=== PATIENT | female | born 1955 | race Caucasian/White ===

== ENCOUNTER 2017-02-02 17:50 | Inpatient (IN) | payer BC ==
[~2017-02-02] VITALS: Ht 165.1 cm; Wt 143.6 kg
[~2017-02-02 17:50] MED LIST: ADULT LOW DOSE81 M1 PO; ALLOPURINOL100 MG PO; ANCEF,KEFZOL1 GM IV; ARTIFICIAL TEAR15 M6 BOTH EYES; BACTRIM,SEPT1 TABLET PO; CILOSTAZOL100 MG PO; CINNAMON500 MG PO; CIPRO750 MG PO; CLEOCIN300 MG PO; CO Q-10100 MG PO; COLCHICINE0.6 M1 PO; COLCRYS0.6 MG PO; COZAAR50 MG PO; DAILY VITAMIN1 EAC8 PO; FLORASTOR250 MG PO; FUROSEMIDE40 MG PO; HEPARIN LOCK 1005 ML IV; JANUMET 50/11 TABLET PO; KEFLEX500 MG PO; LASIX20 MG PO; LEVEMIR FL100 UNIT/1 SC; LEVEMIR FL100 UNITS/ SC; LEVOTHYROXINE200 MC1 PO; LISINOPRIL30 MG PO; LOPRESSOR100 M1 PO; LOW DOSE ASPIRI81 M1 PO; MAGNESIUM OXID500 MG PO; METOPROLOL TAR100 MG PO; MG-PLUS-PROTEI133 MG PO; MOTRIN IB200 MG PO; MULTIVITAMIN1 EAC2 PO; NASONEX17 GM BOTH NARES; ONCE DAILY1 EACH PO; PLETAL100 MG PO; PRAVACHOL20 MG PO; PRAVASTATIN SOD20 MG PO; PRINIVIL20 MG PO; PROTEIN PO; SINGULAIR10 MG PO; ST. JOSEPH ASPI81 MG PO; SYNTHROID200 MCG PO; VITAMIN B-6100 MG PO; VITAMIN D31000 UNI2 PO; ZYLOPRIM100 MG PO; [UNRECOGNIZED DRUG - OTHER] PO
[2017-02-02 18:17] LABS: HEMATOCRIT 39.7 % (36.0-46.0); MCH 31.3 PG (29.0-34.0); MCHC 35.8 G/DL (30.0-36.0); MCV 87.6 FL (83-99); MEAN PLAT.VOLUME 10.5 uM^3 (9.5-12.4); PLATELET COUNT 218 K/uL (156-360); RBC DIS.WIDTH-CV 13.1 % (11.8-14.6); RBC DIS.WIDTH-SD 41.7 % (39-53); RED BLOOD COUNT 4.53 M/uL (3.80-5.20); WHITE BLOOD COUNT 10.8 K/uL (4.1-10.2)
[2017-02-02 18:30] LABS: CHLORIDE 98 mEq/L (99-109); POTASSIUM 3.7 mEq/L (3.7-5.4); SODIUM 136 mEq/L (136-147)
[2017-02-02 18:32] LABS: GLUCOSE 227 mg/dL (70-99)
[2017-02-02 18:33] LABS: ANION GAP 14 MEQ/L (2-14)
[2017-02-02 18:36] LABS: GFR ESTIMATE (CALCULATED) > 59 mL/min/; UREA NITROGEN (BUN) 21 mg/dL (9-23)
[2017-02-02 19:29] LABS: TOTAL BILIRUBIN 0.6 mg/dL (0.0-1.0)
[2017-02-02 19:30] LABS: ALKALINE PHOSPHATASE 69 IU/L (3-129)
[2017-02-02 19:32] LABS: DIRECT BILIRUBIN 0.2 mg/dL (0.0-0.3)
[2017-02-02 19:33] LABS: LIPASE 34 U/L (1.0-51.0)
[2017-02-02] MEDS ORDERED: COLCRYS0.6 MG PO (22:07)
[2017-02-02] MEDS ORDERED: CORICIDIN HB1 TABLET PO (22:08)
[2017-02-02] MEDS ORDERED: FLONASE ALLERG9.9 ML BOTH NARES (22:08)
[2017-02-02] MEDS ORDERED: MAGOX 400400 MG PO (22:10)
[2017-02-02 23:20] VITALS: BP 140/65
[2017-02-03 06:36] LABS: EOSINOPHIL (%) 1.2 % (0-5); EOSINOPHIL COUNT 0.1 K/uL (0-0.3); HEMATOCRIT 35.3 % (36.0-46.0); IMMATURE GRANULOCYTE (%) 0.5 % (0.0-0.7); INSTRUMENT ABS NEUTROPHIL CT 4.3 K/uL; LYMPHOCYTE COUNT 1.4 K/uL (1.0-2.8); MCV 88.9 FL (83-99); MEAN PLAT.VOLUME 10.8 uM^3 (9.5-12.4); MONOCYTE (%) 8.9 % (3-12); MONOCYTE COUNT 0.6 K/uL (0-0.8); NEUTROPHIL (%) 66.7 % (45-76); NEUTROPHIL COUNT 4.3 K/uL (1.8-6.4); PLATELET COUNT 188 K/uL (156-360); RBC DIS.WIDTH-CV 13.2 % (11.8-14.6); RBC DIS.WIDTH-SD 43.4 % (39-53); RED BLOOD COUNT 3.97 M/uL (3.80-5.20); WHITE BLOOD COUNT 6.4 K/uL (4.1-10.2)
[2017-02-03 07:10] VITALS: BP 133/69
[2017-02-03 07:27] LABS: ANION GAP 10 MEQ/L (2-14); CHLORIDE 104 MEQ/L (99-109); GFR ESTIMATE (CALCULATED) 53 mL/min/; GLUCOSE 178 mg/dL (70-99); POTASSIUM 3.7 MEQ/L (3.7-5.4); SAMPLE HEMOLYSIS CHECK 0; SAMPLE ICTERIC CHECK 0; SAMPLE LIPEMIA CHECK 0; SODIUM 142 MEQ/L (136-147); UREA NITROGEN (BUN) 19 mg/dL (9-23)
[2017-02-03 15:55] VITALS: BP 130/71
[2017-02-03 21:13] LABS: POINT-OF-CARE METER ID UU13113725
[2017-02-03 23:25] VITALS: BP 124/58
[2017-02-04 06:10] LABS: POINT-OF-CARE METER ID UU13113725
[2017-02-04 06:30] LABS: HEMATOCRIT 33.5 % (36.0-46.0); MCH 31.1 PG (29.0-34.0); MCHC 34.6 G/DL (30.0-36.0); MCV 89.8 FL (83-99); MEAN PLAT.VOLUME 10.8 uM^3 (9.5-12.4); PLATELET COUNT 174 K/uL (156-360); RBC DIS.WIDTH-CV 13.2 % (11.8-14.6); RBC DIS.WIDTH-SD 42.6 % (39-53); RED BLOOD COUNT 3.73 M/uL (3.80-5.20); WHITE BLOOD COUNT 4.4 K/uL (4.1-10.2)
[2017-02-04 06:59] LABS: ANION GAP 8 MEQ/L (2-14); CHLORIDE 108 MEQ/L (99-109); GFR ESTIMATE (CALCULATED) > 59 mL/min/; MAGNESIUM 1.5 mg/dl (1.3-2.7); POTASSIUM 3.8 MEQ/L (3.7-5.4); SAMPLE HEMOLYSIS CHECK 0; SAMPLE ICTERIC CHECK 0; SAMPLE LIPEMIA CHECK 0; SODIUM 144 MEQ/L (136-147); UREA NITROGEN (BUN) 12 mg/dL (9-23)
[2017-02-04 07:01] LABS: GLUCOSE 109 mg/dL (70-99)
[2017-02-04 07:15] VITALS: BP 174/85
[2017-02-04 11:36] LABS: POINT-OF-CARE METER ID UU13113725
[2017-02-04 16:27] VITALS: BP 145/86
[2017-02-04 16:27] LABS: POINT-OF-CARE METER ID UU13113725
[2017-02-05 00:49] VITALS: BP 135/66
[2017-02-05 07:34] VITALS: BP 146/80
[2017-02-05] MEDS ORDERED: MOTRIN600 MG PO (13:59)
[2017-02-05 15:17] VITALS: BP 188/88
== END 2017-02-05 16:21 | disposition home health service (06) | DRG 872 ==
LOC: EME 17:50 → EDOF 21:58 → 5EAST 21:58 → ENRESERV 22:00 → 5EAST 23:08
PROVIDERS: Hospitalist; Internal Medicine; Physician Assistant Medical
DX: A41.9 Sepsis, unspecified organism (principal); L02.611 Cutaneous abscess of right foot; E11.621 Type 2 diabetes mellitus with foot ulcer; L03.031 Cellulitis of right toe; L97.519 Non-pressure chronic ulcer of other part of right foot with unspecified severity; E11.42 Type 2 diabetes mellitus with diabetic polyneuropathy; E11.610 Type 2 diabetes mellitus with diabetic neuropathic arthropathy; E11.65 Type 2 diabetes mellitus with hyperglycemia; E78.5 Hyperlipidemia, unspecified; E89.0 Postprocedural hypothyroidism; I10 Essential (primary) hypertension; K21.9 Gastro-esophageal reflux disease without esophagitis; D64.9 Anemia, unspecified; R53.1 Weakness; R10.31 Right lower quadrant pain; E66.01 Morbid (severe) obesity due to excess calories; Z68.43 Body mass index [BMI] 50.0-59.9, adult; M20.41 Other hammer toe(s) (acquired), right foot; M10.9 Gout, unspecified; Z79.4 Long term (current) use of insulin; Z82.49 Family history of ischemic heart disease and other diseases of the circulatory system; Z83.3 Family history of diabetes mellitus
CPT/HCPCS: 73630; 73720; 74177; 80048; 80076; 80202; 82948; 83605; 83690; 83735; 85025; 85027; 87040; 87070; 87075; 87076; 87077; 87147; 87185; 87186; 87205; 99281; 99284; A6021; J0690; J0692; J1650; J1815; J2270; J2405; J3370; J7030; J7050

== ENCOUNTER 2017-12-22 11:31 | Observation (INO) | payer BC ==
[~2017-12-22] VITALS: Ht 167.6 cm; Wt 121.5 kg
[~2017-12-22 11:31] MED LIST changes: +CHILDREN'S CHE1 EAC2 PO; +CORICIDIN HB1 TABLET PO; +FLONASE ALLERG9.9 ML BOTH NARES; +GLUCOPHAGE500 MG PO; +MAGOX 400400 MG PO; +MOTRIN600 MG PO; +NOVOLOG PE100 UNITS/ SC; -ONCE DAILY1 EACH PO
[2017-12-22 13:05] LABS: HEMOGLOBIN 15.3 G/DL (11.9-15.5); MCH 30.8 PG (29.0-34.0); MCHC 35.6 G/DL (30.0-36.0); MCV 86.5 FL (83-99); PLATELET COUNT 294 K/uL (156-360); RBC DIS.WIDTH-CV 13.9 % (11.8-14.6); RBC DIS.WIDTH-SD 43.2 % (39-53); RED BLOOD COUNT 4.97 M/uL (3.80-5.20); WHITE BLOOD COUNT 9.2 K/uL (4.1-10.2)
[2017-12-22 13:21] LABS: ALBUMIN 4.1 g/dL (3.2-4.8); CHLORIDE 105 mEq/L (99-109); POTASSIUM 3.7 mEq/L (3.7-5.4); SODIUM 141 mEq/L (136-147)
[2017-12-22 13:23] LABS: GLUCOSE 141 mg/dL (70-99); TOTAL PROTEIN 7.1 g/dL (6.4-8.3)
[2017-12-22 13:25] LABS: TOTAL BILIRUBIN 0.8 mg/dL (0.0-1.0)
[2017-12-22 13:27] LABS: ALKALINE PHOSPHATASE 64 IU/L (3-129); CREATININE 0.9 mg/dL (0.6-1.3); GFR ESTIMATE (CALCULATED) > 59 mL/min/
[2017-12-22 13:28] LABS: UREA NITROGEN (BUN) 21 mg/dL (9-23)
[2017-12-22 13:29] LABS: AST (GOT) 25 IU/L (2-34)
[2017-12-22 13:30] LABS: ALT (GPT) 24 IU/L (3-49)
[2017-12-22 17:37] LABS: APPEARANCE CLEAR ((CLEAR)); BILIRUBIN NEGATIVE; BLOOD NEGATIVE; COLOR YELLOW ((YELLOW)); GLUCOSE (STRIP) NEGATIVE; KETONES 20; LEUKOCYTES TRACE; NITRITE NEGATIVE; PROTEIN (STRIP) NEGATIVE; SPECIFIC GRAVITY 1.034 (1.000-1.030); UROBILINOGEN 0.2 MG/DL (0.2-1.0)
[2017-12-22 17:45] LABS: BACTERIA NONE SEEN /HPF; EPITHELIAL CELLS 1+ /HPF; MUCUS TRACE /LPF; RED BLOOD CELLS 0-5 /HPF (0-5); UCUL ADDED? NO; WHITE BLOOD CELLS 0-5 /HPF (0-5)
[2017-12-22] MEDS ORDERED: CILOSTAZOL100 MG PO (19:18)
[2017-12-22] MEDS ORDERED: PANTOPRAZOLE SO40 MG PO (19:20)
[2017-12-22] MEDS ORDERED: VITAMIN B-122000 MC1 PO (19:21)
[2017-12-22] MEDS ORDERED: VITAMIN D31000 UNI2 PO (19:21)
[2017-12-22] MEDS ORDERED: CALCIUM 500 MG1 EACH PO (19:22)
[2017-12-22] MEDS ORDERED: LO-DOSE ASPIRIN81 M1 PO (19:22)
[2017-12-23 02:47] VITALS: BP 118/58
[2017-12-23 05:22] LABS: ALBUMIN 3.6 g/dL (3.2-4.8)
[2017-12-23 05:23] LABS: CHLORIDE 106 mEq/L (99-109); SODIUM 139 mEq/L (136-147)
[2017-12-23 05:25] LABS: TOTAL PROTEIN 6.1 g/dL (6.4-8.3)
[2017-12-23 05:27] LABS: TOTAL BILIRUBIN 0.7 mg/dL (0.0-1.0)
[2017-12-23 05:28] LABS: ALKALINE PHOSPHATASE 51 IU/L (3-129)
[2017-12-23 05:29] LABS: CREATININE 0.8 mg/dL (0.6-1.3); GFR ESTIMATE (CALCULATED) > 59 mL/min/
[2017-12-23 05:30] LABS: AST (GOT) 36 IU/L (2-34); UREA NITROGEN (BUN) 17 mg/dL (9-23)
[2017-12-23 05:32] LABS: ALT (GPT) 21 IU/L (3-49)
[2017-12-23 05:35] LABS: GLUCOSE 78 mg/dL (70-99); POTASSIUM 4.9 mEq/L (3.7-5.4)
[2017-12-23 05:36] LABS: HEMATOCRIT 39.2 % (36.0-46.0); HEMOGLOBIN 13.7 G/DL (11.9-15.5); MCH 30.9 PG (29.0-34.0); MCHC 34.9 G/DL (30.0-36.0); MCV 88.3 FL (83-99); NRBC (%) 0.5 /100 WBC (0-0); RBC DIS.WIDTH-SD 45.1 % (39-53); RED BLOOD COUNT 4.44 M/uL (3.80-5.20); WHITE BLOOD COUNT 6.1 K/uL (4.1-10.2)
[2017-12-23 07:00] LABS: PLAT.SUFFICIENCY ADEQUATE
[2017-12-23 07:03] LABS: PLATELET COUNT 193 K/uL (156-360)
[2017-12-23 08:30] VITALS: BP 131/69
[2017-12-23] MEDS ORDERED: MIRALAX17 GM PO (10:53)
[2017-12-23] MEDS ORDERED: COLACE100 MG PO (10:53)
== END 2017-12-23 11:23 | disposition home or self-care (01) ==
LOC: EME 11:31 → EDOF 12-23 00:26 → ENRESERV 12-23 00:30 → 4SOUTH 12-23 02:35
PROVIDERS: Hospitalist; Physician Assistant
DX: K56.41 Fecal impaction (principal); K52.9 Noninfective gastroenteritis and colitis, unspecified; Z98.84 Bariatric surgery status; R33.9 Retention of urine, unspecified; E86.0 Dehydration; I10 Essential (primary) hypertension; E03.9 Hypothyroidism, unspecified; E11.40 Type 2 diabetes mellitus with diabetic neuropathy, unspecified; E11.610 Type 2 diabetes mellitus with diabetic neuropathic arthropathy; M14.679 Charcot's joint, unspecified ankle and foot; M10.9 Gout, unspecified; E78.5 Hyperlipidemia, unspecified; Z79.4 Long term (current) use of insulin; Z79.82 Long term (current) use of aspirin
CPT/HCPCS: 74177; 80053; 81003; 82948; 85027; 99281; 99285; G0378; J0744; J1644; J2270; J7030; S0030

== ENCOUNTER 2018-02-04 09:46 | Day surgery (SDC) | payer BC ==
[~2018-02-04] VITALS: Ht 165.1 cm; Wt 115.6 kg
[~2018-02-04 09:46] MED LIST changes: +CALCIUM 500 MG1 EACH PO; +COLACE100 MG PO; +LO-DOSE ASPIRIN81 M1 PO; +MIRALAX17 GM PO; +PANTOPRAZOLE SO40 MG PO; +VITAMIN B-122000 MC1 PO
[2018-02-04 10:21] VITALS: BP 123/62
[2018-02-04 15:05] VITALS: BP 140/63
[2018-02-04 15:58] VITALS: BP 130/60
== END 2018-02-04 16:03 | disposition home or self-care (01) ==
LOC: SDC 09:46
PROVIDERS: Podiatrist Foot & Ankle Surgery
DX: M20.21 Hallux rigidus, right foot (principal); M20.41 Other hammer toe(s) (acquired), right foot; E11.42 Type 2 diabetes mellitus with diabetic polyneuropathy; E03.9 Hypothyroidism, unspecified; Z79.82 Long term (current) use of aspirin; Z79.4 Long term (current) use of insulin; E11.621 Type 2 diabetes mellitus with foot ulcer; L97.512 Non-pressure chronic ulcer of other part of right foot with fat layer exposed; I73.9 Peripheral vascular disease, unspecified
CPT/HCPCS: 73630; 76000; 82948; C1713; J0131; J0330; J0690; J1100; J2250; J2405; J3010; S0020

== ENCOUNTER 2018-02-16 05:20 | Day surgery (SDC) | payer BC ==
[~2018-02-16] VITALS: Ht 165.1 cm; Wt 13.9 kg
[~2018-02-16 05:20] MED LIST changes: +CYTOTEC200 MCG VG
[2018-02-16 05:56] VITALS: BP 121/60
[2018-02-16 09:30] VITALS: BP 138/60
[2018-02-16 09:59] VITALS: BP 120/59
== END 2018-02-16 10:12 | disposition home or self-care (01) ==
LOC: SDC 05:20
PROVIDERS: Obstetrics & Gynecology
PROC: 0UDB7ZX Extraction of Endometrium, Via Natural or Artificial Opening, Diagnostic (ICD-10-PCS; principal; 2018-02-16)
PROC: 0U5B8ZZ Destruction of Endometrium, Via Natural or Artificial Opening Endoscopic (ICD-10-PCS; principal; 2018-02-16)
DX: N84.0 Polyp of corpus uteri (principal); I12.9 Hypertensive chronic kidney disease with stage 1 through stage 4 chronic kidney disease, or unspecified chronic kidney disease; E11.22 Type 2 diabetes mellitus with diabetic chronic kidney disease; N18.3 Chronic kidney disease, stage 3 (moderate); Z79.4 Long term (current) use of insulin; E03.9 Hypothyroidism, unspecified; E11.42 Type 2 diabetes mellitus with diabetic polyneuropathy; K21.9 Gastro-esophageal reflux disease without esophagitis; Z79.82 Long term (current) use of aspirin; Z88.8 Allergy status to other drugs, medicaments and biological substances; Z91.040 Latex allergy status
CPT/HCPCS: 82948; 88305; J0131; J0330; J0690; J1100; J1885; J2250; J2405; J3010